=== PATIENT | male | born 1945 | race Caucasian/White ===

== ENCOUNTER → 2018-02-27 | Outpatient (CLI) | payer MEDICARE, OTHER ==
[~2018-02-27] MED LIST: ACEBUTOLOL HCL PO; ASPI81CH PO; ATORVASTATIN CA10 MG PO; Amlodipine Besy10 MG PO; Aspir 8181 MG PO; CHOL10002 PO; HYDCHL25 PO; Hydroxyzine HCl50 MG PO; LISI20 PO; METF500C PO; ONDA8 PO; PROM25 PO
[2018-02-27 14:22] LABS: Microalbumin, Urine Quant. 6.77 mg/L (0.000-20.000)
== END ==
LOC: LAB 08:28 → LAB SHORT 08:28
PROVIDERS: Nurse Practitioner Family
DX: E11.9 Type 2 diabetes mellitus without complications (principal)
CPT/HCPCS: 81050; 82043

== ENCOUNTER → 2020-05-25 | Outpatient (CLI) | payer OTHER ==
[~2020-05-25] MED LIST changes: +ACEB200 PO; +ALBU90OI INH; +AMLO10 PO; +ATOR10 PO; +Flomax0.4 MG PO; +GLUCOPHAGE1000 M1 PO; +IRBESARTAN300 M1 PO; +VITAMIN D325 MC3 PO
[2020-05-25 13:31] LABS: Stool Occult Bld Immuno 1 Positive (NEGATIVE)
== END | disposition home or self-care (01) ==
LOC: LAB SHORT 06:30 → LAB 06:30 → LAB FUT 05-22 07:35
PROVIDERS: Nurse Practitioner Family
DX: N40.1 Benign prostatic hyperplasia with lower urinary tract symptoms (principal); R79.9 Abnormal finding of blood chemistry, unspecified
CPT/HCPCS: 82274

== ENCOUNTER 2020-10-13 08:35 | Day surgery (SDC) | payer OTHER ==
[~2020-10-13] VITALS: Ht 177.8 cm; Wt 109.5 kg
--- NOTE | 2020-10-13 10:33 | NUR ---
10/13/20 Trudi3 Jacinta Jansen 15CC NACL USED FOR INJECTION OF POLYP
== END 2020-10-13 11:03 | disposition home or self-care (01) ==
LOC: ORSCSDS 08:35
PROVIDERS: Internal Medicine Gastroenterology
PROC: 0DBK8ZX Excision of Ascending Colon, Via Natural or Artificial Opening Endoscopic, Diagnostic (ICD-10-PCS; principal; 2020-10-13 10:00)
PROC: 0DBM8ZX Excision of Descending Colon, Via Natural or Artificial Opening Endoscopic, Diagnostic (ICD-10-PCS; principal; 2020-10-13 10:00)
PROC: 0DBL8ZX Excision of Transverse Colon, Via Natural or Artificial Opening Endoscopic, Diagnostic (ICD-10-PCS; principal; 2020-10-13 10:00)
PROC: 0DBN8ZX Excision of Sigmoid Colon, Via Natural or Artificial Opening Endoscopic, Diagnostic (ICD-10-PCS; principal; 2020-10-13 10:00)
DX: K92.1 Melena (principal); D12.2 Benign neoplasm of ascending colon; D12.3 Benign neoplasm of transverse colon; D12.4 Benign neoplasm of descending colon; D12.5 Benign neoplasm of sigmoid colon; K63.5 Polyp of colon; K64.8 Other hemorrhoids; K57.30 Diverticulosis of large intestine without perforation or abscess without bleeding; Z79.899 Other long term (current) drug therapy
CPT/HCPCS: 82947; 88305; J2704; J7120

== ENCOUNTER 2022-11-07 07:29 | Day surgery (SDC) | payer OTHER ==
[~2022-11-07] VITALS: Ht 177.8 cm; Wt 111.4 kg
[2022-11-07 09:40] VITALS: BP 108/63
== END 2022-11-07 09:47 | disposition home or self-care (01) ==
LOC: ORSCSDS 07:29
PROVIDERS: Internal Medicine Gastroenterology
PROC: 0DBK8ZX Excision of Ascending Colon, Via Natural or Artificial Opening Endoscopic, Diagnostic (ICD-10-PCS; principal; 2022-11-07 08:45)
PROC: 0DBL8ZX Excision of Transverse Colon, Via Natural or Artificial Opening Endoscopic, Diagnostic (ICD-10-PCS; principal; 2022-11-07 08:45)
PROC: 0DBN8ZX Excision of Sigmoid Colon, Via Natural or Artificial Opening Endoscopic, Diagnostic (ICD-10-PCS; principal; 2022-11-07 08:45)
DX: Z86.010 Personal history of colon polyps (principal); D12.2 Benign neoplasm of ascending colon; K63.5 Polyp of colon; K57.30 Diverticulosis of large intestine without perforation or abscess without bleeding; K64.8 Other hemorrhoids; Z85.818 Personal history of malignant neoplasm of other sites of lip, oral cavity, and pharynx; E11.9 Type 2 diabetes mellitus without complications; I10 Essential (primary) hypertension; E78.5 Hyperlipidemia, unspecified; J44.9 Chronic obstructive pulmonary disease, unspecified; R06.02 Shortness of breath; D64.9 Anemia, unspecified; Z79.84 Long term (current) use of oral hypoglycemic drugs; Z79.899 Other long term (current) drug therapy
CPT/HCPCS: 82947; 88305; J2704; J7120